=== PATIENT | male | born 1935 | race Two or more races ===

== ENCOUNTER 2024-01-08 12:12 | Outpatient (REF) | payer OTHER, SELFPAY ==
[2024-01-08 13:57] LABS: Vitamin B12 902 pg/mL (200-900)
== END 2024-01-08 12:13 | disposition home or self-care (01) ==
LOC: HO.LAB 12:12
PROVIDERS: Visit Provider Psychiatry & Neurology Neurology
DX: G30.9 Alzheimer's disease, unspecified (principal)
CPT/HCPCS: 36415; 82607